=== PATIENT | female | born 1980 | race African-American/Black ===

== ENCOUNTER 2021-12-07 14:37 | Outpatient (CLI) | payer MEDICAID | END 2021-12-07 14:38 | disposition home or self-care (01) | LOC: ULT 14:37 | PROVIDERS: ATTEND Family Medicine | DX: N92.6 Irregular menstruation, unspecified (principal) | CPT/HCPCS: 76856 ==

== ENCOUNTER 2022-01-14 14:09 | Outpatient (CLI) | payer MEDICAID | END 2022-01-14 14:10 | disposition home or self-care (01) | LOC: BICMAMMO 14:09 | PROVIDERS: ATTEND Family Medicine | DX: N63.0 Unspecified lump in unspecified breast (principal) | CPT/HCPCS: 77066; G0279 ==

== ENCOUNTER 2022-03-29 16:44 | Emergency (ER) | payer MEDICAID ==
[2022-03-29] MEDS ORDERED: Ketorolac Tromethamine 30 MG/ML VIAL ONE (18:15)
== END 2022-03-29 18:55 | disposition home or self-care (01) ==
LOC: ERS 16:44
DX: M25.522 Pain in left elbow (principal); M25.512 Pain in left shoulder; I10 Essential (primary) hypertension; Z79.899 Other long term (current) drug therapy
CPT/HCPCS: J1885